=== PATIENT | female | born 1945 | race Caucasian/White ===

== ENCOUNTER 2018-01-12 09:24 | Inpatient (IN) ==
[2018-01-15] MEDS ORDERED: GLUCAGON 1 MG VIAL IM PRN (08:56)
[2018-01-15] MEDS ORDERED: DEXTROSE 50% 25 GM/50 ML VIAL IV PRN (08:56)
[2018-01-15] MEDS ORDERED: NITROGLYCERIN SL 0.4 MG TABLET SL PRN (09:03)
[2018-01-17] MEDS ORDERED: CEFUROXIME INJ 1,500 MG in SYRINGE 1 EACH IV ONE (08:56)
[2018-01-17 10:45] LABS: Basophils # 0.1 10*3/uL (0.0-0.2); Basophils % 0.9 % (0.0-0.8); Eosinophils # 0.2 10*3/uL (0.0-0.87); Eosinophils % 2.5 % (0.00-10.9); Hematocrit 28.3 VOL% (35.7-47.0); Hemoglobin 9.5 GM/DL (12.0-16.0); Immature Granulocytes % 0.5 %; Immature Granulocytes Absolute 0.04 #; Lymphocytes # 1.6 10*3/uL (1.4-4.0); Lymphocytes % 21.4 % (21.3-54.2); Mean Corpuscular HGB Conc 33.6 GM/DL (32-36); Mean Corpuscular Hemoglobin 29 PG (27-34); Mean Corpuscular Volume 87.6 FL (87-102); Mean Platelet Volume 9.9 FL (9.6-12.0); Monocytes # 0.9 10*3/uL (0.11-0.8); Monocytes % 11.7 % (1.7-12.7); Neutrophils # 4.7 10*3/uL (1.4-7.4); Platelet Count 297 T/CUMM (130-400); Red Blood Count 3.23 MC/CUMM (3.8-5.5); Red Cell Distribution Width 14.4 % (9.3-17.3); White Blood Count 7.5 T/CUMM (4-12)
[2018-01-17 11:29] LABS: Albumin 3.4 G/DL (3.4-5.0); Bilirubin,Total 0.6 MG/DL (0.2-1.0); Calcium 8.9 MG/DL (8.5-10.1); Osmolality,Calculated 265.7 MOS/KG (273-304); Potassium 3.8 MMOL/L (3.5-5.1); Total Protein 7.8 G/DL (6.4-8.3)
[2018-01-17 11:45] LABS: ABG Base Excess -2.1 MMOL/L (-2.5-2.5); ABG HCO3 20.5 MMOL/L (20-26); ABG Oxygen Saturation 97.9 % (95-100); ABG PCO2 28.5 MM HG (35-48); ABG PH 7.475 (7.35-7.45); ABG TCO2 21.4 MMOL/L (23-27)
[2018-01-17] MEDS ORDERED: HEPARIN/NACL 0.9% 2 UNITS/ML 500 ML IV ONE (13:04)
[2018-01-17] MEDS: SODIUM CHLORIDE 0.9% 1,000 ML IV SCH ×3 (15:09→15:57)
[2018-01-17] MEDS: LOSARTAN 25 MG TABLET PO SCH ×2 (15:15→15:19)
[2018-01-17] MEDS: BENZTROPINE 0.5 MG TABLET PO SCH ×3 (15:15→20:22)
[2018-01-17] MEDS: DONEPEZIL 10 MG TABLET PO SCH ×2 (15:15→15:19)
[2018-01-17] MEDS: LURASIDONE 40 MG TABLET PO SCH ×2 (15:16→15:25)
[2018-01-17] MEDS: FLUoxetine 20 MG CAPSULE PO SCH ×2 (15:16→15:20)
[2018-01-17] MEDS: glipiZIDE 10 MG TABLET PO SCH ×2 (15:16→15:19)
[2018-01-17] MEDS: METOPROLOL SUCCINATE XL 50 MG TABLET PO SCH ×2 (15:16→15:21)
[2018-01-17] MEDS: CHLORHEXIDINE 4% SOLN 118 ML BOTTLE TOP SCH ×3 (15:19→22:13)
[2018-01-17] MEDS: LORATADINE 10 MG TABLET PO SCH (15:21)
[2018-01-17] MEDS: CHLORHEXIDINE 0.12% ORAL RINSE 60 ML BOTTLE SWISH/SPIT SCH ×2 (15:54→20:24)
[2018-01-17] MEDS ORDERED: ASPIRIN EC 81 MG TABLET PO SCH (16:30)
[2018-01-17] MEDS ORDERED: DIAZEPAM 5 MG TABLET PO ONE (18:28)
[2018-01-17] MEDS ORDERED: PANTOPRAZOLE 40 MG TABLET PO ONE (18:28)
[2018-01-17] MEDS ORDERED: LURASIDONE 40 MG TABLET PO SCH (21:00)
[2018-01-17] MEDS ORDERED: ATORVASTATIN 10 MG TABLET PO SCH (21:00)
[2018-01-18] MEDS ORDERED: PANTOPRAZOLE 40 MG TABLET PO ONE (04:00)
[2018-01-18] MEDS ORDERED: DIAZEPAM 5 MG TABLET PO ONE (04:00)
[2018-01-18] MEDS ORDERED: PAPAVERINE 60 MG/2 ML VIAL ONE (05:18)
[2018-01-18] MEDS ORDERED: VANCOMYCIN 1,000 MG VIAL ONE (05:19)
[2018-01-18] MEDS ORDERED: CEFUROXIME INJ 1,500 MG in SYRINGE 1 EACH IV ONE (06:00)
[2018-01-18] MEDS ORDERED: SUFentanil 250 MCG/5 ML AMP ONE (06:04)
[2018-01-18] MEDS ORDERED: MIDAZOLAM 10 MG/2 ML VIAL ONE (06:04)
[2018-01-18] MEDS ORDERED: HEPARIN/NACL 0.9% 2 UNITS/ML 500 ML IV ONE (06:04)
[2018-01-18] MEDS ORDERED: NITROGLYCERIN DRIP 50 MG/250 ML BOTTLE IV ONE (06:05)
[2018-01-18 07:37] LABS: ABG Base Excess -2.5 MMOL/L (-2.5-2.5); ABG HCO3 22.3 MMOL/L (20-26); ABG PCO2 27.3 MM HG (35-48); ABG PH 7.476 (7.35-7.45); ABG TCO2 18.5 MMOL/L (23-27); Glucose Heart Surgery 168 MG/DL (74-106); Hematocrit Heart Surgery 28.3 PERCENT (37-47); Hemoglobin Heart Surgery 9.1 G/DL (12.0-16.0); Ionized Calcium Arterial 1.12 MMOL/L (1.21-1.46); PCO2 Patient Temp Arterial 27.3 MMHG; PH Patient Temp Arterial 7.476; Patient Temperature 37 CELCIUS; Potassium Heart/CVR 3.2 MMOL/L (3.5-5.1); Sodium Heart/CVR 132 MMOL/L (135-145)
[2018-01-18] MEDS ORDERED: PHENYLEPHRINE DRIP 40 MG/250 ML PREMIX IV ONE (08:07)
[2018-01-18] MEDS ORDERED: POTASSIUM CHLORIDE RIDER 100 ML IV ONE (08:08)
[2018-01-18 08:53] LABS: Hematocrit Heart Surgery 24.9 PERCENT (37-47); PCO2 Patient Temp Venous 34.4 MM HG; PH Patient Temp Venous 7.389; PO2 Patient Temp Venous 40.6 MM HG; Potassium Heart/CVR 4.4 MMOL/L (3.5-5.1); VBG Base Excess -3.6 MEQ/L (0-4); VBG HCO3 21.2 MEQ/L (24-28); VBG Oxygen Saturation 83.3 %; VBG PCO2 37.9 MMHG (41-51); VBG PH 7.361; VBG PO2 46.5 MMHG (17-40)
[2018-01-18 09:22] LABS: Hematocrit Heart Surgery 25.6 PERCENT (37-47); Hemoglobin Heart Surgery 8.2 G/DL (12.0-16.0); PCO2 Patient Temp Venous 32.7 MM HG; PH Patient Temp Venous 7.436; PO2 Patient Temp Venous 37.2 MM HG; Potassium Heart/CVR 4.4 MMOL/L (3.5-5.1); VBG Base Excess -1.7 MEQ/L (0-4); VBG HCO3 22.8 MEQ/L (24-28); VBG Oxygen Saturation 78.1 %; VBG PCO2 34.3 MMHG (41-51); VBG PH 7.422; VBG PO2 39.9 MMHG (17-40)
[2018-01-18 09:41] LABS: Apearance,Urine CLEAR (Clear); Bilirubin,Urine Negative (Negative); Blood, Urine Small mg/dL (Negative); Glucose,Urine (UA) Negative (Negative); Ketones,Urine Negative (Negative); Nitrite,Urine Negative (Negative); Protein,Urine Negative; RBC,Urine 1 /HPF (0-4); Squamous Epithelial Cell,Urine Occasional /HPF (0-10); Urine Color Straw (Yellow); Urine Specific Gravity 1.006 (1.001-1.035); Urine Urobilinogen < 2.0 EU/DL (0.2-1.0)
[2018-01-18 09:51] LABS: ABG Base Excess -3.9 MMOL/L (-2.5-2.5); ABG HCO3 21.2 MMOL/L (20-26); ABG Oxygen Saturation 99.7 % (95-100); ABG PCO2 38.2 MM HG (35-48); ABG PH 7.353 (7.35-7.45); ABG TCO2 19.5 MMOL/L (23-27); Glucose Heart Surgery 328 MG/DL (74-106); Hematocrit Heart Surgery 29.9 PERCENT (37-47); Hemoglobin Heart Surgery 9.7 G/DL (12.0-16.0); Ionized Calcium Arterial 1.47 MMOL/L (1.21-1.46); PCO2 Patient Temp Arterial 38.2 MMHG; PH Patient Temp Arterial 7.353; Patient Temperature 37 CELCIUS; Potassium Heart/CVR 3.5 MMOL/L (3.5-5.1); Sodium Heart/CVR 128 MMOL/L (135-145)
[2018-01-18] MEDS ORDERED: LIDOCAINE 1% 5 ML VIAL ONE ×2 (10:25→10:30)
[2018-01-18] MEDS ORDERED: MAGNESIUM SULFATE 1 GM/2 ML VIAL ONE (10:25)
[2018-01-18] MEDS ORDERED: DEXTROSE 5% KCL 20 MEQ 20 MEQ/1,000 ML BAG IV ONE (10:25)
[2018-01-18] MEDS ORDERED: ALBUMIN 25% 25 GM/100 ML VIAL IV ONE (10:25)
[2018-01-18] MEDS ORDERED: SODIUM BICARBONATE 50 MEQ/50 ML SYRINGE IV ONE (10:25)
[2018-01-18] MEDS ORDERED: MANNITOL 12.5 GM/50 ML VIAL IV ONE (10:26)
[2018-01-18] MEDS ORDERED: methylPREDNISolone SOD SUC 1,000 MG/8 ML VIAL ONE (10:26)
[2018-01-18] MEDS ORDERED: PROTAMINE SULFATE 50 MG/5 ML VIAL IV ONE (10:26)
[2018-01-18] MEDS ORDERED: FUROSEMIDE 20 MG/2 ML VIAL ONE (10:26)
[2018-01-18] MEDS ORDERED: HEPARIN 10,000 UNIT/10 ML VIAL ONE (10:26)
[2018-01-18] MEDS ORDERED: SEVOFLURANE 1 UNIT/15 MINUTE INH ONE (10:29)
[2018-01-18] MEDS ORDERED: CALCIUM CHLORIDE 1,000 MG/10 ML VIAL IV ONE (10:29)
[2018-01-18] MEDS ORDERED: ePHEDrine 50 MG/ML AMP ONE (10:29)
[2018-01-18] MEDS ORDERED: PHENYLEPHRINE 10 MG/1 ML VIAL IV ONE (10:29)
[2018-01-18] MEDS ORDERED: TRANEXAMIC ACID 1,000 MG/10 ML VIAL ONE (10:29)
[2018-01-18] MEDS ORDERED: SODIUM CHLORIDE 0.9% 100 ML IV ONE ×2 (10:30)
[2018-01-18] MEDS ORDERED: LACTATED RINGERS 1,000 ML IV ONE (10:30)
[2018-01-18] MEDS ORDERED: SODIUM CHLORIDE 0.9% 500 ML IV ONE (10:30)
[2018-01-18] MEDS ORDERED: ROCURONIUM 100 MG/10 ML VIAL IV ONE (10:30)
[2018-01-18] MEDS ORDERED: ETOMIDATE 40 MG/20 ML VIAL IV ONE (10:30)
[2018-01-18] MEDS ORDERED: INSULIN REGULAR 100 UNIT/ML IV PRN (10:54)
[2018-01-18] MEDS ORDERED: VECURONIUM 10 MG VIAL IV PRN ×2 (10:54)
[2018-01-18] MEDS ORDERED: MIDAZOLAM 10 MG/2 ML VIAL IV PRN (10:54)
[2018-01-18] MEDS ORDERED: ACETAMINOPHEN 650 MG SUPP RECTAL PRN (10:54)
[2018-01-18] MEDS ORDERED: ONDANSETRON 4 MG/2 ML VIAL IV PRN (10:54)
[2018-01-18] MEDS ORDERED: NITROPRUSSIDE 100 MG in DEXTROSE 5% 250 ML IV PRN (10:54)
[2018-01-18] MEDS ORDERED: DEXTROSE 50% 25 GM/50 ML VIAL IV PRN ×2 (10:54)
[2018-01-18] MEDS ORDERED: LACTATED RINGERS 250 ML IV PRN (10:54)
[2018-01-18] MEDS ORDERED: INSULIN REGULAR 100 UNIT/ML IV ONE (10:54)
[2018-01-18] MEDS ORDERED: MORPHINE 4 MG/1 ML VIAL IV PRN (10:54)
[2018-01-18] MEDS ORDERED: MORPHINE 10 MG/1 ML VIAL IV PRN (10:54)
[2018-01-18] MEDS ORDERED: CALCIUM CHLORIDE 1,000 MG/10 ML SYRINGE IV PRN (10:54)
[2018-01-18] MEDS ORDERED: ALBUMIN 5% 12.5 GM in PREMIX 1 EACH IV PRN (10:54)
[2018-01-18] MEDS ORDERED: PHENYLEPHRINE DRIP 40 MG/250 ML PREMIX IV PRN (10:54)
[2018-01-18] MEDS ORDERED: MAGNESIUM SULF RIDER 4 GM in PREMIX 1 EACH IV PRN (10:54)
[2018-01-18] MEDS ORDERED: MIDAZOLAM 2 MG/2 ML VIAL IV PRN (10:54)
[2018-01-18 10:58] LABS: ABG Base Excess -4.8 MMOL/L (-2.5-2.5); ABG HCO3 20.5 MMOL/L (20-26); ABG Oxygen Saturation 98.5 % (95-100); ABG PH 7.305 (7.35-7.45); ABG TCO2 19.4 MMOL/L (23-27); Glucose Heart Surgery 243 MG/DL (74-106); Hematocrit Heart Surgery 33.8 PERCENT (37-47); Potassium Heart/CVR 3.8 MMOL/L (3.5-5.1)
[2018-01-18 10:59] LABS: Basophils # 0.1 10*3/uL (0.0-0.2); Basophils % 0.4 % (0.0-0.8); Eosinophils # 0.2 10*3/uL (0.0-0.87); Eosinophils % 0.9 % (0.00-10.9); Hematocrit 32.4 VOL% (35.7-47.0); Hemoglobin 10.8 GM/DL (12.0-16.0); Immature Granulocytes Absolute 0.16 #; Lymphocytes # 1.6 10*3/uL (1.4-4.0); Lymphocytes % 9.8 % (21.3-54.2); Mean Corpuscular HGB Conc 33.3 GM/DL (32-36); Mean Corpuscular Hemoglobin 29 PG (27-34); Mean Corpuscular Volume 86.9 FL (87-102); Mean Platelet Volume 10.2 FL (9.6-12.0); Monocytes # 1.3 10*3/uL (0.11-0.8); Monocytes % 8.3 % (1.7-12.7); Neutrophils # 12.9 10*3/uL (1.4-7.4); Neutrophils % 79.6 % (38.7-73.9); Platelet Count 238 T/CUMM (130-400); Red Blood Count 3.73 MC/CUMM (3.8-5.5); White Blood Count 16.2 T/CUMM (4-12)
[2018-01-18] MEDS ORDERED: INSULIN REGULAR DRIP 100 ML IV SCH (11:00)
[2018-01-18] MEDS: LACTATED RINGERS 1,000 ML IV PRN ×2 (11:00→12:02)
[2018-01-18 11:08] LABS: INR 1.1; PT Patient Result 11.4 SECS; Partial Thromboplastin Time 28.8 SECS (0-40)
[2018-01-18] MEDS: SODIUM CHLORIDE 0.45% 1,000 ML IV SCH ×2 (11:19)
[2018-01-18] MEDS: POTASSIUM CHLORIDE RIDER 20 MEQ in PREMIX 1 EACH IV PRN ×3 (11:26→14:58)
[2018-01-18 11:34] LABS: Calcium 9.9 MG/DL (8.5-10.1); Osmolality,Calculated 277.2 MOS/KG (273-304); Potassium 3.9 MMOL/L (3.5-5.1); Total Protein 5.7 G/DL (6.4-8.3)
[2018-01-18] MEDS: KETOROLAC 30 MG/1 ML VIAL IV SCH ×3 (12:20→23:30)
[2018-01-18 12:42] LABS: ABG Base Excess -1.5 MMOL/L (-2.5-2.5); ABG HCO3 23.2 MMOL/L (20-26); ABG Oxygen Saturation 98.7 % (95-100); ABG PCO2 36.3 MM HG (35-48); ABG PH 7.406 (7.35-7.45); ABG TCO2 20.2 MMOL/L (23-27); Glucose Heart Surgery 200 MG/DL (74-106); Hematocrit Heart Surgery 35.8 PERCENT (37-47); Hemoglobin Heart Surgery 11.6 G/DL (12.0-16.0); Potassium Heart/CVR 3.7 MMOL/L (3.5-5.1)
[2018-01-18] MEDS: DONEPEZIL 10 MG TABLET PO SCH (13:05)
[2018-01-18] MEDS: LORATADINE 10 MG TABLET PO SCH (13:05)
[2018-01-18] MEDS: glipiZIDE 10 MG TABLET PO SCH (13:06)
[2018-01-18] MEDS: SODIUM CHLORIDE 0.9% 1,000 ML IV SCH (13:06)
[2018-01-18] MEDS: LOSARTAN 25 MG TABLET PO SCH (13:06)
[2018-01-18] MEDS: CHLORHEXIDINE 0.12% ORAL RINSE 60 ML BOTTLE SWISH/SPIT SCH ×2 (13:06→20:45)
[2018-01-18] MEDS: FLUoxetine 20 MG CAPSULE PO SCH (13:07)
[2018-01-18] MEDS: METOPROLOL SUCCINATE XL 50 MG TABLET PO SCH (13:07)
[2018-01-18] MEDS: POTASSIUM CHLORIDE RIDER 10 MEQ in PREMIX 1 EACH IV PRN (13:47)
[2018-01-18 14:31] LABS: ABG Base Excess -0.5 MMOL/L (-2.5-2.5); ABG Oxygen Saturation 98.3 % (95-100); ABG PCO2 42.3 MM HG (35-48); ABG PH 7.376 (7.35-7.45); ABG TCO2 22.2 MMOL/L (23-27); Glucose Heart Surgery 168 MG/DL (74-106); Hematocrit Heart Surgery 35.1 PERCENT (37-47); Hemoglobin Heart Surgery 11.4 G/DL (12.0-16.0); Potassium Heart/CVR 4.1 MMOL/L (3.5-5.1)
[2018-01-18] MEDS: CEFUROXIME INJ 1,500 MG in SYRINGE 1 EACH IV SCH (18:28)
[2018-01-18 19:58] LABS: CKMB % 5.3 %
[2018-01-18] MEDS ORDERED: amLODIPine 10 MG TABLET PO SCH (21:00)
[2018-01-19] MEDS ORDERED: FUROSEMIDE 40 MG/4 ML VIAL IV ONE (01:30)
[2018-01-19 01:54] LABS: ABG Base Excess -0.2 MMOL/L (-2.5-2.5); ABG HCO3 24.2 MMOL/L (20-26); ABG PCO2 40.3 MM HG (35-48); ABG PH 7.394 (7.35-7.45); ABG PO2 87.4 MM HG (80-95); Glucose Heart Surgery 153 MG/DL (74-106); Hematocrit Heart Surgery 35.5 PERCENT (37-47); Hemoglobin Heart Surgery 11.5 G/DL (12.0-16.0); Potassium Heart/CVR 3.5 MMOL/L (3.5-5.1)
[2018-01-19] MEDS: POTASSIUM CHLORIDE RIDER 20 MEQ in PREMIX 1 EACH IV PRN ×2 (02:00→04:20)
[2018-01-19] MEDS: POTASSIUM CHLORIDE RIDER 10 MEQ in PREMIX 1 EACH IV PRN (02:49)
[2018-01-19 04:01] LABS: Basophils % 0.2 % (0.0-0.8); Hematocrit 32.3 VOL% (35.7-47.0); Hemoglobin 11.2 GM/DL (12.0-16.0); Immature Granulocytes % 0.4 %; Immature Granulocytes Absolute 0.07 #; Lymphocytes # 0.9 10*3/uL (1.4-4.0); Lymphocytes % 4.9 % (21.3-54.2); Mean Corpuscular HGB Conc 34.7 GM/DL (32-36); Mean Corpuscular Hemoglobin 29 PG (27-34); Mean Corpuscular Volume 84.1 FL (87-102); Mean Platelet Volume 11.2 FL (9.6-12.0); Monocytes % 10.9 % (1.7-12.7); Neutrophils # 15.3 10*3/uL (1.4-7.4); Neutrophils % 83.6 % (38.7-73.9); Platelet Count 253 T/CUMM (130-400); Red Blood Count 3.84 MC/CUMM (3.8-5.5); Red Cell Distribution Width 15.8 % (9.3-17.3); White Blood Count 18.2 T/CUMM (4-12)
[2018-01-19 04:07] LABS: ABG Base Excess -0.7 MMOL/L (-2.5-2.5); ABG HCO3 24.3 MMOL/L (20-26); ABG PCO2 41.4 MM HG (35-48); ABG PH 7.386 (7.35-7.45); ABG PO2 97.8 MM HG (80-95); ABG TCO2 25.5 MMOL/L (23-27); Glucose Heart Surgery 121 MG/DL (74-106); Hemoglobin Heart Surgery 11.7 G/DL (12.0-16.0); Potassium Heart/CVR 4.2 MMOL/L (3.5-5.1)
[2018-01-19 04:33] LABS: Albumin 3.3 G/DL (3.4-5.0); Bilirubin,Direct 0.17 MG/DL (0.0-0.20); Bilirubin,Total 0.7 MG/DL (0.2-1.0); Calcium 8.9 MG/DL (8.5-10.1); Potassium 4.2 MMOL/L (3.5-5.1); Total Protein 6.4 G/DL (6.4-8.3)
[2018-01-19 04:55] LABS: CKMB % 5.2 %
[2018-01-19 05:05] LABS: ABG Base Excess 0.8 MMOL/L (-2.5-2.5); ABG Oxygen Saturation 97.9 % (95-100); ABG PCO2 38.4 MM HG (35-48); ABG PH 7.431 (7.35-7.45); ABG PO2 115.7 MM HG (80-95); ABG TCO2 26.2 MMOL/L (23-27)
[2018-01-19] MEDS: MAGNESIUM SULF RIDER 2 GM in PREMIX 1 EACH IV PRN ×2 (05:05→09:00)
[2018-01-19 05:43] LABS: Band Neutrophils 1 % (0-10); Lymphocytes 7 % (20-55); Segmented Neutrophils 88 % (50-85); Total Cells Counted 100
[2018-01-19] MEDS: KETOROLAC 30 MG/1 ML VIAL IV SCH ×2 (06:21→10:29)
[2018-01-19] MEDS: CEFUROXIME INJ 1,500 MG in SYRINGE 1 EACH IV SCH (06:22)
[2018-01-19] MEDS ORDERED: GLUCAGON 1 MG VIAL IM PRN ×3 (07:04→13:49)
[2018-01-19] MEDS ORDERED: DEXTROSE 50% 25 GM/50 ML VIAL IV PRN ×3 (07:04→13:49)
[2018-01-19] MEDS ORDERED: LURASIDONE 40 MG TABLET PO SCH (09:30)
[2018-01-19] MEDS ORDERED: INSULIN REGULAR 100 UNIT/ML SUBCUT SCH (10:00)
[2018-01-19] MEDS: LORATADINE 10 MG TABLET PO SCH (10:27)
[2018-01-19] MEDS: METOPROLOL SUCCINATE XL 50 MG TABLET PO SCH (10:27)
[2018-01-19] MEDS: FLUoxetine 20 MG CAPSULE PO SCH (10:28)
[2018-01-19] MEDS: CHLORHEXIDINE 0.12% ORAL RINSE 60 ML BOTTLE SWISH/SPIT SCH ×2 (10:29→21:51)
[2018-01-19] MEDS: glipiZIDE 10 MG TABLET PO SCH (10:32)
[2018-01-19 12:23] LABS: CKMB % 3.9 %
[2018-01-19] MEDS ORDERED: MAGNESIUM SULF RIDER 4 GM in PREMIX 1 EACH IV PRN (13:49)
[2018-01-19] MEDS ORDERED: SODIUM CHLOR 0.45% KCL 20 MEQ 20 MEQ/1,000 ML BAG IV SCH (13:49)
[2018-01-19] MEDS ORDERED: ZALEPLON 5 MG CAPSULE PO PRN (13:49)
[2018-01-19] MEDS ORDERED: ALUMINUM/MAGNES/SIMETH MAX STR 30 ML UDCUP PO PRN (13:49)
[2018-01-19] MEDS ORDERED: ACETAMINOPHEN 325 MG TABLET PO PRN (13:49)
[2018-01-19] MEDS ORDERED: ONDANSETRON 4 MG/2 ML VIAL IV PRN (13:49)
[2018-01-19] MEDS ORDERED: MAGNESIUM HYDROXIDE SUSP 30 ML UDCUP PO PRN (13:49)
[2018-01-19] MEDS ORDERED: POTASSIUM CHLORIDE 20 MEQ TABLET PO PRN (13:49)
[2018-01-19] MEDS ORDERED: MAGNESIUM SULF RIDER 2 GM in PREMIX 1 EACH IV PRN (13:49)
[2018-01-19] MEDS: KETOROLAC 15 MG/1 ML VIAL IV SCH ×2 (14:05→21:43)
[2018-01-19] MEDS: SODIUM CHLORIDE 0.45% 1,000 ML IV SCH ×2 (20:44)
[2018-01-19] MEDS ORDERED: ROSUVASTATIN 20 MG TABLET PO SCH (21:00)
[2018-01-19] MEDS ORDERED: ATORVASTATIN 10 MG TABLET PO SCH (21:00)
[2018-01-19] MEDS: BENZTROPINE 0.5 MG TABLET PO SCH (21:42)
[2018-01-19] MEDS: FAMOTIDINE 20 MG TABLET PO SCH (21:42)
[2018-01-19] MEDS: metFORMIN 500 MG TABLET PO SCH (21:43)
[2018-01-19] MEDS: amLODIPine 10 MG TABLET PO SCH (21:43)
[2018-01-19] MEDS: FERROUS SULFATE 325 MG TABLET PO SCH (21:43)
[2018-01-20] MEDS: KETOROLAC 15 MG/1 ML VIAL IV SCH ×4 (00:53→22:10)
[2018-01-20] MEDS: oxyCODONE/ACETAMINOPHEN 5-325 MG TABLET PO PRN (00:54)
[2018-01-20] MEDS ORDERED: FUROSEMIDE 40 MG/4 ML VIAL IV ONE (06:00)
[2018-01-20 06:27] LABS: Bilirubin,Indirect 0.6 MG/DL (0.0-1.0)
[2018-01-20 06:28] LABS: Alanine Aminotransferase 20 U/L (13-56); Albumin 2.7 G/DL (3.4-5.0); Alkaline Phosphatase 72 U/L (45-117); Aspartate Amino Transferase 18 U/L (0-37); Blood Urea Nitrogen 18 MG/DL (7-18); Calcium 8.5 MG/DL (8.5-10.1); Glucose 265 MG/DL (74-106); Osmolality,Calculated 270.8 MOS/KG (273-304); Potassium 4.7 MMOL/L (3.5-5.1); Sodium 130 MMOL/L (136-145); Total Protein 6.6 G/DL (6.4-8.3)
[2018-01-20] MEDS ORDERED: FERROUS SULFATE 325 MG TABLET PO SCH (09:00)
[2018-01-20] MEDS: FAMOTIDINE 20 MG TABLET PO SCH ×2 (09:40→21:45)
[2018-01-20] MEDS: ASPIRIN EC 325 MG TABLET PO SCH (09:41)
[2018-01-20] MEDS: METOPROLOL SUCCINATE XL 50 MG TABLET PO SCH (09:41)
[2018-01-20] MEDS: FLUoxetine 20 MG CAPSULE PO SCH (09:41)
[2018-01-20] MEDS: LOSARTAN/HCTZ 50-12.5 MG TABLET PO SCH (09:41)
[2018-01-20] MEDS: LORATADINE 10 MG TABLET PO SCH (09:42)
[2018-01-20] MEDS: DONEPEZIL 10 MG TABLET PO SCH (09:42)
[2018-01-20] MEDS: DOCUSATE SODIUM 100 MG CAPSULE PO SCH (09:42)
[2018-01-20] MEDS: glipiZIDE 10 MG TABLET PO SCH (09:42)
[2018-01-20] MEDS: PANTOPRAZOLE 40 MG TABLET PO SCH (09:42)
[2018-01-20] MEDS: FERROUS SULFATE 325 MG TABLET PO SCH ×2 (09:42→21:45)
[2018-01-20] MEDS: metFORMIN 500 MG TABLET PO SCH ×2 (09:42→21:45)
[2018-01-20] MEDS: CHLORHEXIDINE 0.12% ORAL RINSE 60 ML BOTTLE SWISH/SPIT SCH ×2 (09:43→21:46)
[2018-01-20] MEDS: ASPIRIN EC 81 MG TABLET PO SCH (09:43)
[2018-01-20] MEDS: BENZTROPINE 0.5 MG TABLET PO SCH (21:45)
[2018-01-20] MEDS: amLODIPine 10 MG TABLET PO SCH (21:45)
[2018-01-20] MEDS: ROSUVASTATIN 20 MG TABLET PO SCH (21:45)
[2018-01-20] MEDS: LURASIDONE 40 MG TABLET PO SCH (21:46)
[2018-01-21] MEDS: KETOROLAC 15 MG/1 ML VIAL IV SCH ×4 (03:53→20:57)
[2018-01-21 06:05] LABS: Calcium 8.3 MG/DL (8.5-10.1); Osmolality,Calculated 268.5 MOS/KG (273-304); Potassium 4.1 MMOL/L (3.5-5.1)
[2018-01-21 06:06] LABS: Bilirubin,Indirect 0.2 MG/DL (0.0-1.0)
[2018-01-21 06:10] LABS: Alanine Aminotransferase 19 U/L (13-56); Albumin 2.4 G/DL (3.4-5.0); Alkaline Phosphatase 69 U/L (45-117); Aspartate Amino Transferase 17 U/L (0-37); Blood Urea Nitrogen 19 MG/DL (7-18); Calcium 8.3 MG/DL (8.5-10.1); Glucose 137 MG/DL (74-106); Osmolality,Calculated 269.4 MOS/KG (273-304); Potassium 4.1 MMOL/L (3.5-5.1); Sodium 133 MMOL/L (136-145); Total Protein 6.3 G/DL (6.4-8.3)
[2018-01-21] MEDS: LOSARTAN/HCTZ 50-12.5 MG TABLET PO SCH (08:37)
[2018-01-21] MEDS: DONEPEZIL 10 MG TABLET PO SCH (08:38)
[2018-01-21] MEDS: PANTOPRAZOLE 40 MG TABLET PO SCH (08:38)
[2018-01-21] MEDS: FAMOTIDINE 20 MG TABLET PO SCH ×2 (08:38→20:59)
[2018-01-21] MEDS: DOCUSATE SODIUM 100 MG CAPSULE PO SCH (08:38)
[2018-01-21] MEDS: METOPROLOL SUCCINATE XL 50 MG TABLET PO SCH (08:39)
[2018-01-21] MEDS: metFORMIN 500 MG TABLET PO SCH ×2 (08:39→20:59)
[2018-01-21] MEDS: glipiZIDE 10 MG TABLET PO SCH (08:39)
[2018-01-21] MEDS: LORATADINE 10 MG TABLET PO SCH (08:39)
[2018-01-21] MEDS: FLUoxetine 20 MG CAPSULE PO SCH (08:39)
[2018-01-21] MEDS: ASPIRIN EC 325 MG TABLET PO SCH (08:39)
[2018-01-21] MEDS: oxyCODONE/ACETAMINOPHEN 5-325 MG TABLET PO PRN (08:42)
[2018-01-21] MEDS: ASPIRIN EC 81 MG TABLET PO SCH (09:54)
[2018-01-21] MEDS: FERROUS SULFATE 325 MG TABLET PO SCH ×2 (09:55→21:00)
[2018-01-21] MEDS: CHLORHEXIDINE 0.12% ORAL RINSE 60 ML BOTTLE SWISH/SPIT SCH ×2 (10:41→21:00)
[2018-01-21] MEDS: amLODIPine 10 MG TABLET PO SCH (20:59)
[2018-01-21] MEDS: LURASIDONE 40 MG TABLET PO SCH (20:59)
[2018-01-21] MEDS: BENZTROPINE 0.5 MG TABLET PO SCH (20:59)
[2018-01-21] MEDS: ROSUVASTATIN 20 MG TABLET PO SCH (20:59)
[2018-01-22] MEDS: KETOROLAC 15 MG/1 ML VIAL IV SCH (01:39)
[2018-01-22] MEDS: LOSARTAN/HCTZ 50-12.5 MG TABLET PO SCH (11:07)
[2018-01-22] MEDS: FAMOTIDINE 20 MG TABLET PO SCH ×2 (11:08→21:53)
[2018-01-22] MEDS: DONEPEZIL 10 MG TABLET PO SCH (11:08)
[2018-01-22] MEDS: metFORMIN 500 MG TABLET PO SCH ×2 (11:09→21:53)
[2018-01-22] MEDS: LORATADINE 10 MG TABLET PO SCH (11:09)
[2018-01-22] MEDS: glipiZIDE 10 MG TABLET PO SCH (11:11)
[2018-01-22] MEDS: PANTOPRAZOLE 40 MG TABLET PO SCH (11:11)
[2018-01-22] MEDS: FERROUS SULFATE 325 MG TABLET PO SCH ×2 (11:11→21:53)
[2018-01-22] MEDS: FLUoxetine 20 MG CAPSULE PO SCH (11:12)
[2018-01-22] MEDS: ASPIRIN EC 325 MG TABLET PO SCH (11:12)
[2018-01-22] MEDS: METOPROLOL SUCCINATE XL 50 MG TABLET PO SCH (11:13)
[2018-01-22] MEDS: CHLORHEXIDINE 0.12% ORAL RINSE 60 ML BOTTLE SWISH/SPIT SCH ×2 (11:13→21:53)
[2018-01-22] MEDS: DOCUSATE SODIUM 100 MG CAPSULE PO SCH (11:14)
[2018-01-22] MEDS: amLODIPine 10 MG TABLET PO SCH (21:53)
[2018-01-22] MEDS: LURASIDONE 40 MG TABLET PO SCH (21:53)
[2018-01-22] MEDS: BENZTROPINE 0.5 MG TABLET PO SCH (21:53)
[2018-01-22] MEDS: ROSUVASTATIN 20 MG TABLET PO SCH (21:53)
[2018-01-23 04:59] LABS: Basophils # 0.1 10*3/uL (0.0-0.2); Basophils % 0.7 % (0.0-0.8); Eosinophils # 0.4 10*3/uL (0.0-0.87); Eosinophils % 3.7 % (0.00-10.9); Hemoglobin 11.2 GM/DL (12.0-16.0); Immature Granulocytes % 0.5 %; Immature Granulocytes Absolute 0.05 #; Lymphocytes # 2.3 10*3/uL (1.4-4.0); Lymphocytes % 22.3 % (21.3-54.2); Mean Corpuscular HGB Conc 32.9 GM/DL (32-36); Mean Corpuscular Hemoglobin 29 PG (27-34); Mean Corpuscular Volume 87.2 FL (87-102); Monocytes # 1.2 10*3/uL (0.11-0.8); Monocytes % 11.2 % (1.7-12.7); Neutrophils # 6.5 10*3/uL (1.4-7.4); Neutrophils % 61.6 % (38.7-73.9); Platelet Count 263 T/CUMM (130-400); White Blood Count 10.5 T/CUMM (4-12)
[2018-01-23 05:27] LABS: Bilirubin,Indirect 0.3 MG/DL (0.0-1.0)
[2018-01-23 05:31] LABS: Alanine Aminotransferase 18 U/L (13-56); Albumin 2.4 G/DL (3.4-5.0); Alkaline Phosphatase 70 U/L (45-117); Aspartate Amino Transferase 9 U/L (0-37); Blood Urea Nitrogen 19 MG/DL (7-18); Calcium 8.7 MG/DL (8.5-10.1); Glucose 109 MG/DL (74-106); Potassium 4.1 MMOL/L (3.5-5.1); Sodium 136 MMOL/L (136-145); Total Protein 6.4 G/DL (6.4-8.3)
[2018-01-23] MEDS: CHLORHEXIDINE 0.12% ORAL RINSE 60 ML BOTTLE SWISH/SPIT SCH ×2 (09:45→22:06)
[2018-01-23] MEDS: PANTOPRAZOLE 40 MG TABLET PO SCH (09:45)
[2018-01-23] MEDS: FERROUS SULFATE 325 MG TABLET PO SCH ×2 (09:45→21:27)
[2018-01-23] MEDS: FAMOTIDINE 20 MG TABLET PO SCH ×2 (09:45→21:28)
[2018-01-23] MEDS: DONEPEZIL 10 MG TABLET PO SCH (09:45)
[2018-01-23] MEDS: LOSARTAN/HCTZ 50-12.5 MG TABLET PO SCH (09:45)
[2018-01-23] MEDS: glipiZIDE 10 MG TABLET PO SCH (09:45)
[2018-01-23] MEDS: DOCUSATE SODIUM 100 MG CAPSULE PO SCH (09:46)
[2018-01-23] MEDS: ASPIRIN EC 325 MG TABLET PO SCH (09:46)
[2018-01-23] MEDS: FLUoxetine 20 MG CAPSULE PO SCH (09:46)
[2018-01-23] MEDS: METOPROLOL SUCCINATE XL 50 MG TABLET PO SCH (09:46)
[2018-01-23] MEDS: metFORMIN 500 MG TABLET PO SCH ×2 (09:47→21:27)
[2018-01-23] MEDS: LORATADINE 10 MG TABLET PO SCH (09:47)
[2018-01-23] MEDS: ROSUVASTATIN 20 MG TABLET PO SCH (21:27)
[2018-01-23] MEDS: LURASIDONE 40 MG TABLET PO SCH (21:28)
[2018-01-23] MEDS: BENZTROPINE 0.5 MG TABLET PO SCH (21:28)
[2018-01-23] MEDS: amLODIPine 10 MG TABLET PO SCH (21:28)
[2018-01-24 05:27] LABS: Basophils # 0.1 10*3/uL (0.0-0.2); Basophils % 0.9 % (0.0-0.8); Eosinophils # 0.5 10*3/uL (0.0-0.87); Eosinophils % 4.7 % (0.00-10.9); Hematocrit 34.3 VOL% (35.7-47.0); Hemoglobin 11.5 GM/DL (12.0-16.0); Immature Granulocytes % 1.2 %; Immature Granulocytes Absolute 0.12 #; Lymphocytes # 2.5 10*3/uL (1.4-4.0); Lymphocytes % 24.6 % (21.3-54.2); Mean Corpuscular HGB Conc 33.5 GM/DL (32-36); Mean Corpuscular Hemoglobin 29 PG (27-34); Mean Platelet Volume 11.2 FL (9.6-12.0); Monocytes # 1.3 10*3/uL (0.11-0.8); Monocytes % 12.6 % (1.7-12.7); Neutrophils # 5.7 10*3/uL (1.4-7.4); Platelet Count 291 T/CUMM (130-400); Red Blood Count 3.99 MC/CUMM (3.8-5.5); Red Cell Distribution Width 14.7 % (9.3-17.3); White Blood Count 10.2 T/CUMM (4-12)
[2018-01-24 05:45] LABS: Calcium 8.9 MG/DL (8.5-10.1); Osmolality,Calculated 272.1 MOS/KG (273-304)
[2018-01-24 05:46] LABS: Bilirubin,Indirect 0.3 MG/DL (0.0-1.0)
[2018-01-24 05:50] LABS: Alanine Aminotransferase 16 U/L (13-56); Albumin 2.4 G/DL (3.4-5.0); Alkaline Phosphatase 75 U/L (45-117); Aspartate Amino Transferase 12 U/L (0-37); Blood Urea Nitrogen 14 MG/DL (7-18); Calcium 8.7 MG/DL (8.5-10.1); Glucose 134 MG/DL (74-106); Osmolality,Calculated 270.2 MOS/KG (273-304); Sodium 134 MMOL/L (136-145); Total Protein 6.3 G/DL (6.4-8.3)
[2018-01-24] MEDS: metFORMIN 500 MG TABLET PO SCH ×2 (09:54→21:39)
[2018-01-24] MEDS: FAMOTIDINE 20 MG TABLET PO SCH ×2 (09:55→21:38)
[2018-01-24] MEDS: DOCUSATE SODIUM 100 MG CAPSULE PO SCH (09:55)
[2018-01-24] MEDS: METOPROLOL SUCCINATE XL 50 MG TABLET PO SCH (09:55)
[2018-01-24] MEDS: LOSARTAN/HCTZ 50-12.5 MG TABLET PO SCH (09:55)
[2018-01-24] MEDS: FLUoxetine 20 MG CAPSULE PO SCH (09:55)
[2018-01-24] MEDS: glipiZIDE 10 MG TABLET PO SCH (09:55)
[2018-01-24] MEDS: PANTOPRAZOLE 40 MG TABLET PO SCH (09:55)
[2018-01-24] MEDS: CHLORHEXIDINE 0.12% ORAL RINSE 60 ML BOTTLE SWISH/SPIT SCH ×2 (09:56→21:40)
[2018-01-24] MEDS: DONEPEZIL 10 MG TABLET PO SCH (09:56)
[2018-01-24] MEDS: FERROUS SULFATE 325 MG TABLET PO SCH ×2 (09:56→21:38)
[2018-01-24] MEDS: ASPIRIN EC 325 MG TABLET PO SCH (09:56)
[2018-01-24] MEDS: LORATADINE 10 MG TABLET PO SCH (09:56)
[2018-01-24] MEDS ORDERED: MAGNESIUM SULF RIDER 2 GM in PREMIX 1 EACH IV ONE (16:08)
[2018-01-24] MEDS: SPIRONOLACTONE 25 MG TABLET PO SCH (16:25)
[2018-01-24] MEDS: ROSUVASTATIN 20 MG TABLET PO SCH (21:38)
[2018-01-24] MEDS: BENZTROPINE 0.5 MG TABLET PO SCH (21:38)
[2018-01-24] MEDS: LURASIDONE 40 MG TABLET PO SCH (21:38)
[2018-01-25] MEDS ORDERED: amLODIPine 5 MG TABLET PO SCH (09:00)
[2018-01-25] MEDS: FLUoxetine 20 MG CAPSULE PO SCH (09:16)
[2018-01-25] MEDS: metFORMIN 500 MG TABLET PO SCH ×2 (09:17→21:03)
[2018-01-25] MEDS: glipiZIDE 10 MG TABLET PO SCH (09:17)
[2018-01-25] MEDS: LOSARTAN/HCTZ 50-12.5 MG TABLET PO SCH (09:17)
[2018-01-25] MEDS: DONEPEZIL 10 MG TABLET PO SCH (09:17)
[2018-01-25] MEDS: ASPIRIN EC 325 MG TABLET PO SCH (09:17)
[2018-01-25] MEDS: FAMOTIDINE 20 MG TABLET PO SCH ×2 (09:17→21:04)
[2018-01-25] MEDS: METOPROLOL SUCCINATE XL 50 MG TABLET PO SCH (09:18)
[2018-01-25] MEDS: DOCUSATE SODIUM 100 MG CAPSULE PO SCH (09:18)
[2018-01-25] MEDS: PANTOPRAZOLE 40 MG TABLET PO SCH (09:18)
[2018-01-25] MEDS: LORATADINE 10 MG TABLET PO SCH (09:18)
[2018-01-25] MEDS: SPIRONOLACTONE 25 MG TABLET PO SCH (09:18)
[2018-01-25] MEDS: FERROUS SULFATE 325 MG TABLET PO SCH ×2 (10:51→21:04)
[2018-01-25] MEDS: CHLORHEXIDINE 0.12% ORAL RINSE 60 ML BOTTLE SWISH/SPIT SCH ×2 (10:51→21:04)
[2018-01-25] MEDS: LURASIDONE 40 MG TABLET PO SCH (21:04)
[2018-01-25] MEDS: ROSUVASTATIN 20 MG TABLET PO SCH (21:04)
[2018-01-25] MEDS: MAGNESIUM CHLORIDE 64 MG TABLET PO SCH (21:04)
[2018-01-25] MEDS: BENZTROPINE 0.5 MG TABLET PO SCH (21:04)
[2018-01-26 06:06] LABS: Albumin 2.4 G/DL (3.4-5.0); Bilirubin,Total 0.5 MG/DL (0.2-1.0); Calcium 8.5 MG/DL (8.5-10.1); Osmolality,Calculated 269.4 MOS/KG (273-304); Potassium 4.1 MMOL/L (3.5-5.1); Total Protein 6.2 G/DL (6.4-8.3)
[2018-01-26] MEDS: DONEPEZIL 10 MG TABLET PO SCH (10:20)
[2018-01-26] MEDS: SPIRONOLACTONE 25 MG TABLET PO SCH (10:21)
[2018-01-26] MEDS: LOSARTAN/HCTZ 50-12.5 MG TABLET PO SCH (10:21)
[2018-01-26] MEDS: METOPROLOL SUCCINATE XL 50 MG TABLET PO SCH (10:21)
[2018-01-26] MEDS: FAMOTIDINE 20 MG TABLET PO SCH (10:21)
[2018-01-26] MEDS: MAGNESIUM CHLORIDE 64 MG TABLET PO SCH (10:21)
[2018-01-26] MEDS: DOCUSATE SODIUM 100 MG CAPSULE PO SCH (10:22)
[2018-01-26] MEDS: LORATADINE 10 MG TABLET PO SCH (10:22)
[2018-01-26] MEDS: metFORMIN 500 MG TABLET PO SCH (10:23)
[2018-01-26] MEDS: FLUoxetine 20 MG CAPSULE PO SCH (10:23)
[2018-01-26] MEDS: PANTOPRAZOLE 40 MG TABLET PO SCH (10:23)
[2018-01-26] MEDS: FERROUS SULFATE 325 MG TABLET PO SCH (10:23)
[2018-01-26] MEDS: glipiZIDE 10 MG TABLET PO SCH (10:23)
[2018-01-26] MEDS: ASPIRIN EC 325 MG TABLET PO SCH (10:24)
[2018-01-26 11:49] VITALS: BP 115/75
== END 2018-01-26 12:27 | disposition home health service (06) | DRG 236 ==
LOC: N.4E 01-17 09:13 → N.CVR 01-18 07:39 → N.TELES 01-19 11:25